=== PATIENT | female | born 1965 | race Caucasian/White ===

== ENCOUNTER → 2025-06-03 08:45 | Outpatient (BNVA) | payer MEDICAID, SELFPAY | PROVIDERS: Family Provider Family Medicine; PCP Nurse Practitioner Family; Visit Provider Specialist | DX: M67.432 Ganglion, left wrist (principal) | CPT/HCPCS: 73110 ==

== ENCOUNTER 2025-07-25 10:25 | Outpatient (CLI) | payer MEDICAID, SELFPAY ==
--- NOTE | 2025-07-25 10:40 | MM_ITS ---
WS: [id number] SCREENING DIGITAL TOMOSYNTHESIS MAMMOGRAM WITH CAD HISTORY: SCREENING COMPARISON: 03/11/2021, 02/21/2017 Bilateral CC and MLO with tomosynthesis views submitted. Synthetic mammography reviewed. Computer aided detection analyzed. Breast composition: The breasts are almost entirely fatty. No suspicious masses, microcalcifications or architectural distortion. MM/MM scr BI tomosynthesis [id number] IMPRESSION: BI-RADS: 2 - Benign. FOLLOW UP: 1 Year Follow-up
== END 2025-07-25 10:26 | disposition home or self-care (01) ==
LOC: MOBLMAM 10:26
PROVIDERS: PCP Nurse Practitioner Family; Visit Provider Nurse Practitioner Family
DX: Z12.31 Encounter for screening mammogram for malignant neoplasm of breast (principal); R92.313 Mammographic fatty tissue density, bilateral breasts
CPT/HCPCS: 77063; 77067

== ENCOUNTER 2025-08-02 15:12 | Outpatient (CLI) | payer MEDICAID, SELFPAY ==
--- NOTE | 2025-08-02 15:15 | MRR_ITS ---
PROCEDURE INFORMATION: Exam: MR Left Upper Extremity Joint Without and With Contrast; Wrist Exam date and time: 08/02/2025 3:37 PM Age: 60 years old Clinical indication: Pain; Wrist; Left; Prior surgery; Surgery date: 6+ months; Surgery type: Bilat carpal tunnel, gb; Additional info: Pain, iv contrast TECHNIQUE: Imaging protocol: Magnetic resonance imaging of the left upper extremity without and with contrast. Exam focused on the wrist. Contrast material: MULTIHANCE; Contrast volume: 20 ml; Contrast route: INTRAVENOUS (IV); COMPARISON: CR XR wrist LT min 3V* [id number] 06/03/2025 8:48 AM FINDINGS: Bones/joints: The largest loculation measures 1.8 x 1.3 x 1.4 cm immediately dorsal to the capitate. There is no joint effusion. No abnormal bone signal intensity. No osteomyelitis. There is mild synovial thickening and enhancement in the distal radioulnar joint and midcarpal joint spaces favored to be reactive changes without definite septic joint. Scapholunate ligament: Unremarkable. No tear. Lunotriquetral ligament: Unremarkable. No tear. Triangular fibrocartilage complex: Unremarkable. No tear. Flexor compartment tendons: Unremarkable. No tear. Extensor compartment tendons: There is marked thick walled peripherally enhancing synovitis with central multiloculated fluid collections of the common extensor tendons left wrist beginning in the distal forearm and continuing especially dorsal to the carpal bones. There is abundant enhancement along the extensor retinaculum at the wrist compatible with reactive changes or cellulitis. There is mild peripheral enhancement of the extensor carpi ulnaris tendon sheath adjacent to the tip of the ulnar styloid process but no fluid collection or definite abscess/infected tenosynovitis. Soft tissues: There is abundant subcutaneous edema and subcutaneous enhancement surrounding the abnormal extensor tendons in the wrist and distal forearm compatible with cellulitis. The impression. MR/MR wrist LT wo/w con [id number] IMPRESSION: 1. There is marked thick walled peripherally enhancing synovitis common extensor tendons at the distal forearm and wrist with several central multiloculated fluid collections within the tendon sheath of common extensor tendons left wrist especially dorsal to the carpal bones. The largest loculation measures 1.8 x 1.3 x 1.4 cm immediately dorsal to the capitate. 2. Abundant skin thickening and enhancement compatible cellulitis is noted surrounding the abnormal extensor tendon sheath. 3. No osteomyelitis or bony destruction. No joint effusion. Mild synovial thickening and enhancement distal radioulnar joint and midcarpal joint spaces is noted favored to be reactive changes without definite septic joint.
[2025-08-02] MEDS: gadobenate dimeglumine 20 mL vial IV (16:15)
== END 2025-08-02 15:13 | disposition home or self-care (01) ==
LOC: RAD 15:13
PROVIDERS: PCP Nurse Practitioner Family; Visit Provider Specialist
DX: M67.432 Ganglion, left wrist (principal); M65.832 Other synovitis and tenosynovitis, left forearm; M65.842 Other synovitis and tenosynovitis, left hand; M67.832 Other specified disorders of synovium, left wrist
CPT/HCPCS: 73223